=== PATIENT | male | born 1955 ===

== ENCOUNTER 2018-12-27 17:32 | Emergency (ER) | payer OTHER ==
[2018-12-27 17:32] VITALS: BMI 24.6
[2018-12-27 17:42] VITALS: BP 149/89; PULSE 77; RESP 16; TEMP 98.5; O2SAT 96
[2018-12-27] MEDS ORDERED: Fluorescein 1 mg Ophthalmic Strip OD ONE (18:13)
[2018-12-27] MEDS ORDERED: Tetracaine 0.5% Ophth 2 ML BOTTLE OD ONE (18:13)
[2018-12-27] MEDS ORDERED: Tdap Vaccine 0.5 ml Vial (10-64 yrs) IM ONE ×2 (18:14→18:29)
--- NOTE | 2018-12-27 18:22 | ED PDOC ---
HPI: Eye Injury/Pain Time Seen by Provider: 12/27/18 17:46 Chief Complaint (Nursing): Eye Problem Chief Complaint (Provider): Eye Problem History Per: Patient History/Exam Limitations: no limitations Onset/Duration Of Symptoms: Other (since this morning) Wears Contact Lens?: No Associated Symptoms: Pain. denies: Decreased Vision, Discharge From Eye Additional Complaint(s): 63 years old male with no PMHx presents to ER for evaluation of right eye discomfort onset this morning. Patient states he was cleaning a piece of wood this morning when a piece flew to his eye. Patient reports increase tearing and redness to eye as well as difficulty opening eye secondary to pain. He denies fever, changes in vision, nausea, vomiting, wearing glasses or eye contacts. Patient cannot recall his last tetanus shot. No other complaints. PMD: Lashay Pratt Past Medical History Reviewed: Historical Data, Nursing Documentation, Vital Signs Vital Signs: Last Vital Signs Temp 98.5 F 12/27/18 17:36 Pulse 77 12/27/18 17:36 Resp 16 12/27/18 17:36 BP 149/89 12/27/18 17:36 Pulse Ox 96 12/27/18 17:36 - Medical History PMH: No Chronic Diseases - Surgical History Surgical History: No Surg Hx - Family History Family History: States: Unknown Family Hx - Home Medications Home Medications: Ambulatory Orders Medication Instructions Recorded Cyclobenzaprine [Cyclobenzaprine 10 mg PO BID #14 tab 08/09/16 HCl] Docusate [Colace] 100 mg PO BID #14 cap 08/09/16 Naproxen 500 mg PO BID #20 tab 08/09/16 Naproxen [Naprosyn] 500 mg PO BID PRN #20 tablet 11/12/17 Tobramycin 0.3% [Tobrex 0.3% Ophth 1 drop OD Q6 #1 bottle 12/27/18 Soln] - Allergies Allergies/Adverse Reactions: Allergies Allergy/AdvReac Type Severity Reaction Status Date / Time No Known Allergies Allergy Verified 08/09/16 12:39 Review of Systems ROS Statement: Except As Marked, All Systems Reviewed And Found Negative Constitutional: Negative for: Fever Eyes: Positive for: Pain (Right eye), Redness (of right eye). Negative for: Vision Change Gastrointestinal: Negative for: Nausea, Vomiting Physical Exam - Reviewed Nursing Documentation Reviewed: Yes Vital Signs Reviewed: Yes - Physical Exam Comments: GENERAL APPEARANCE: Patient is awake, alert, oriented x 3, in no acute distress. Resting comfortably. HEENT: (-) facial swelling and erythema, (-) facial blisters. VISUAL ACUITIES: Left eye: 20/70 ; Right eye: 20/50 ; Both eyes: 20/50. LIDS & LASHES: Normal. (-) crusting PUPILS: Pupils equal, round and reactive. EOMI's: Intact and painless. LID EVERSION: (+) 2mm wooden fiber removed from interior of right upper eyelid CONJUNCTIVAE: (+) diffuse injection to right eye ANTERIOR CHAMBER: (-) hyphema. FLUORESCEIN: (+) small area of linear uptake to 12 o'clock position of iris CARDIAC: (-) irregularity RESPIRATORY: lungs clear to auscultation bilaterally (-) rales (-)rhonchi (-) wheezing. Respirations even and nonlabored, speaking in full sentences. NECK: Supple, FROM - ECG O2 Sat by Pulse Oximetry: 96 (RA) Pulse Ox Interpretation: Normal Medical Decision Making Medical Decision Making: Time: 1809 Initial impression: probable corneal abrasion Initial plan: --Tetanus IM --Visual acuity --Fluorescein Strip --Tetracaine Solution 1919 In light of exam findings, Tobramycin drops ordered. On re-evaluation, patient reports improvement of symptoms. On exam, patient remains AAOx3, in no acute distress. Vitals stable. Lab/Diagnostic results d/w the patient in great detail. Diagnosis of foreign body of eye, conjunctival abrasion d/w the patient. Based on history, exam and diagnostic results, plan will be for outpatient follow up with ophtho. Patient instructed to follow-up with pmd / referral provided / the clinic in 1- 2 days without fail. Advised to take medication as prescribed. Return to the emergency room at any time for any new or worsening symptoms. Patient states he fully agrees with and understands discharge instructions. States that he agrees with the plan and disposition. Verbalized and repeated discharge instructions and plan. I have given the patient opportunity to ask any additional questions. Scribe Attestation: Documented by Cassy Pearson acting as a scribe for Tiffany Nunez PA-C. Provider Scribe Attestation: All medical record entries made by the Scribe were at my direction and personally dictated by me. I have reviewed the chart and agree that the record accurately reflects my personal performance of the history, physical exam, medical decision making, and the department course for this patient. I have also personally directed, reviewed, and agree with the discharge instructions and disposition Disposition - Clinical Impression Clinical Impression: Foreign body of eye, external, right, Conjunctival abrasion - Patient ED Disposition Is Patient to be Admitted: No Counseled Patient/Family Regarding: Studies Performed, Diagnosis, Need For Followup, Rx Given - Disposition Referrals: Minesh Blanco MD [Staff Provider] - Lashay Pratt MD [Family Provider] - Disposition: Routine/Home Disposition Time: 19:20 Condition: STABLE Additional Instructions: La atencin mdica de emergencia que recibi hoy se dirigi a mary sntomas agudos. Si le recetaron algn medicamento, llnelo y tmelo segn las indicaciones. Los sntomas pueden tardar varios vaz en resolverse. Regrese al Departamento de Emergencias si mary sntomas empeoran, no mejoran o si tiene otros problemas. Comunquese con rivers mdico dentro de 2 vaz para oral nueva evaluacin y lashawn un seguimiento o llame a edil de los mdicos / clnicas a los que larsen sido referido y que figuran en el formulario de Informacin de visita al paciente que se incluye en rivers paquete de nida. Lleve todos los documentos que le entregaron al momento del nida junto con todos los medicamentos que est tomando para rivers visita de seguimiento. Nuestro tratamiento no puede reemplazar la atencin mdica continua por parte de un proveedor de atencin primaria (PCP) fuera del departamento de emergencias. Prescriptions: Tobramycin 0.3% [Tobrex 0.3% Ophth Soln] 1 drop OD Q6 #1 bottle Instructions: Corneal Abrasion (DC), Foreign Body in Eye (DC) Forms: [employer] (Irish) Print Language: BARBADIAN - POA Present On Arrival: None
[2018-12-27] MEDS ORDERED: Tetracaine 0.5% Ophth 2 ML BOTTLE ONE (18:28)
[2018-12-27] MEDS ORDERED: Fluorescein 1 mg Ophthalmic Strip ONE (18:29)
[2018-12-27] MEDS ORDERED: Tobramycin 0.3% OPHT SOLN OD ONE (18:51)
== END 2018-12-27 19:35 | disposition home or self-care (01) ==
LOC: H.ER 17:32
DX: S05.01XA Injury of conjunctiva and corneal abrasion without foreign body, right eye, initial encounter (principal); T15.81XA Foreign body in other and multiple parts of external eye, right eye, initial encounter; W20.8XXA Other cause of strike by thrown, projected or falling object, initial encounter; Z23 Encounter for immunization